=== PATIENT | female | born 1940 | race Caucasian/White ===

== ENCOUNTER → 2018-07-03 | Outpatient (CLI) | payer MEDICARE, OTHER ==
[2015-09-21 13:16] VITALS: BP 109/46
[~2018-07-03] MED LIST: ACET325T9 PO; AMLO1TAB95 PO; AMLO1TAB97 PO; ASPI-630 PO; ASPI81TA59 PO; ATOR40TA PO; BYSTOLIC5 MG PO; CHLO25TA PO; CHORTHALIDONE; CITA40TA12 PO; CITA40TA5 PO; FERR325T14 PO; FURO-68 PO; FURO40TA4 PO; GABA-586 PO; GABA600T2 PO; GLIM4TAB2 PO; IBUP200T77 PO; IOHEXOL 300 MG/ML 100ML VIAL. IV ONE; LEVO112T4 PO; LEVO88TA2 PO; LEVO88TA4 PO; MELO15TA6 PO; METF500T16 PO; OMEG1CAP30 PO; OXYC-323 PO; POTA20TA12 PO; SIMV20TA PO; SIMV20TA3 PO; WARF-78 PO
[2018-07-03 13:45] LABS: CREATININE 1.1 mg/dL (0.6-1.0); GFR 48.2
--- NOTE | 2018-07-03 14:28 | RAD ---
Examination: CT angiography chest HISTORY: History of chest pain, history of pulmonary embolism COMPARISON: None available TECHNIQUE: Axial CT angiography images were performed with IV contrast. Coronal and sagittal 3-D MIP reformats are performed Exposure: One or more of the following individualized dose reduction techniques were utilized for this examination: 1. Automated exposure control 2. Adjustment of the mA and/or kV according to patient size 3. Use of iterative reconstruction technique FINDINGS: The central airways are patent. Mild cardiomegaly. Severe atherosclerotic calcifications identified in the ascending aorta and arch of the aorta. The caliber of the aorta grossly appears unremarkable. Coronary artery calcifications identified. There is no evidence of filling defect identified in the main pulmonary arterial trunk and right and left main pulmonary arteries. The evaluation of the segmental branches of the pulmonary arteries is somewhat limited on this examination. Minimal bibasilar lung and left lingular atelectasis. Calcified granuloma identified in the left upper lobe of the lung. No evidence of pleural effusion or pneumothorax. The visualized liver, spleen, adrenals grossly appears unremarkable. Moderate degenerative changes thoracic spine. IMPRESSION: 1. No evidence of central pulmonary embolism. 2. Coronary artery calcifications. 3. Minimal bibasilar lung atelectasis. Electronically signed by: Bang Cross MD (07/03/2018 2:25 PM) [id number]
== END | disposition home or self-care (01) ==
LOC: CT 12:26
PROVIDERS: ATTEND Internal Medicine Pulmonary Disease
DX: I25.10 Atherosclerotic heart disease of native coronary artery without angina pectoris (principal); J98.11 Atelectasis; J84.10 Pulmonary fibrosis, unspecified; M47.894 Other spondylosis, thoracic region; I10 Essential (primary) hypertension; E11.9 Type 2 diabetes mellitus without complications; Z87.891 Personal history of nicotine dependence; Z90.710 Acquired absence of both cervix and uterus; Z86.711 Personal history of pulmonary embolism; Z88.2 Allergy status to sulfonamides; Z88.8 Allergy status to other drugs, medicaments and biological substances; Z83.3 Family history of diabetes mellitus; Z82.49 Family history of ischemic heart disease and other diseases of the circulatory system
CPT/HCPCS: 36415; 71275; 82565; 84520; Q9967